=== PATIENT | female | born 1950 | race Caucasian/White ===

== ENCOUNTER 2022-11-20 07:09 | Day surgery (SDC) | payer MEDICARE ==
[~2022-11-20] VITALS: Ht 172.7 cm; Wt 73.9 kg
[~2022-11-20 07:09] MED LIST: IBUP800 PO; RXHYDACE PO
[2022-11-20] MEDS ORDERED: Naltrexone HCl50 MG PO (07:25)
--- NOTE | 2022-11-20 07:35 | NUR ---
11/20/22 0735 Norma Cerda 1 DROP OF TETRACAINE ADMINISTERED TO THE L EYE AT 0727, PLEDGET PLACED IN L EYE AT 07
== END 2022-11-20 09:00 | disposition home or self-care (01) ==
LOC: ORSCSDS 07:09
PROVIDERS: Ophthalmology
PROC: 08RK3JZ Replacement of Left Lens with Synthetic Substitute, Percutaneous Approach (ICD-10-PCS; principal; 2022-11-20 08:30)
DX: H25.12 Age-related nuclear cataract, left eye (principal); M19.90 Unspecified osteoarthritis, unspecified site; Z79.899 Other long term (current) drug therapy
CPT/HCPCS: J2250; J3010; J3301; J7040; V2632